=== PATIENT | male | born 1955 | race Two or more races ===

== ENCOUNTER 2024-11-10 09:35 | Emergency (ER) | payer MEDICAID, MEDICARE ==
[~2024-11-10] VITALS: Ht 167.6 cm; Wt 77.0 kg
[2024-11-10 09:54] VITALS: TEMP 97.9
[2024-11-10 10:00] VITALS: BP 138/50; PULSE 68; RESP 18; O2SAT 99
[2024-11-10] MEDS: LIDOCAINE 1% 10 ML VIAL SQ ONE (10:31)
[2024-11-10] MEDS: BACITRACIN 0.9 GM PACKET OINTMENT TP ONE ×2 (10:32→10:59)
[2024-11-10] MEDS: PERTUSS(ACELL),DIPH,TET/PF 0.5 ML SYRINGE [ADULT] IM. ONE (10:32)
[2024-11-10] MEDS ORDERED: BACI28.410 TP (10:53)
[2024-11-10] MEDS ORDERED: IBUP-1554 PO (10:53)
== END 2024-11-10 11:49 | disposition home or self-care (01) ==
LOC: EMS 09:35
DX: S61.212A Laceration without foreign body of right middle finger without damage to nail, initial encounter (principal); E11.9 Type 2 diabetes mellitus without complications; I10 Essential (primary) hypertension; Z79.899 Other long term (current) drug therapy; W25.XXXA Contact with sharp glass, initial encounter; Y93.89 Activity, other specified; Y92.89 Other specified places as the place of occurrence of the external cause; Y99.8 Other external cause status
CPT/HCPCS: 99283; 90715; 90471; 12002; J3490